=== PATIENT | male | born 1995 | race Caucasian/White ===

== ENCOUNTER 2018-09-11 09:02 | Emergency (ER) | payer OTHER ==
[2018-09-11 09:18] VITALS: BP 113/61
--- NOTE | 2018-09-11 09:59 | UC ---
UC General HPI - HPI Summary HPI Summary: Pleasant 23 yo gentleman c/o last couple days progressively worse R lower tooth pain and swelling. Worse at night. Subj fever yesterday, but resolved with ibuprofen. No fever today. No rash. No abd pain. No sob / cp / palpitations. Some ear discomfort. Has had pain in R lower tooth x 2 in the past, not this bad. Is looking for dentist, prior dentist retired. - History of Current Complaint Chief Complaint: UCDentalProblem Stated Complaint: DENTAL Time Seen by Provider: 09/11/18 09:51 Hx Obtained From: Patient Pain Intensity: 9 - Allergy/Home Medications Allergies/Adverse Reactions: Allergies Allergy/AdvReac Type Severity Reaction Status Date / Time No Known Allergies Allergy Verified 09/11/18 09:18 PMH/Surg Hx/FS Hx/Imm Hx Previously Healthy: Yes - Surgical History Surgical History: None - Social History Alcohol Use: Weekly Substance Use Type: None Smoking Status (MU): Never Smoked Tobacco Amount Used/How Often: every day Review of Systems All Other Systems Reviewed And Are Negative: Yes Constitutional: Positive: Other - see hpi Skin: Positive: Negative Eyes: Positive: Negative ENT: Positive: Other - see hpi Respiratory: Positive: Negative Cardiovascular: Positive: Negative Gastrointestinal: Positive: Negative Genitourinary: Positive: Negative Motor: Positive: Negative Neurovascular: Positive: Negative Musculoskeletal: Positive: Negative Neurological: Positive: Negative Psychological: Positive: Negative Is Patient Immunocompromised?: No Physical Exam Triage Information Reviewed: Yes Appearance: Well-Appearing, Well-Nourished Vital Signs: Initial Vital Signs Temp 98.2 F 09/11/18 09:11 Pulse 73 09/11/18 09:11 Resp 18 09/11/18 09:11 BP 113/61 09/11/18 09:11 Pulse Ox 100 09/11/18 09:11 Vital Signs Reviewed: Yes Eye Exam: Normal - grossly normal ENT Exam: Other - mmm, tm's bilat pedraza dull no stridor, tongue not elevated. Mild trismus d/t R jaw Dental Exam: Other - R lower wisdom tooth + swelling, + tender. + gingivitis noted Neck exam: Normal Neck: Positive: Supple, Nontender, No Lymphadenopathy Respiratory Exam: Normal Respiratory: Positive: Chest non-tender, Lungs clear, Normal breath sounds, No respiratory distress, No accessory muscle use Cardiovascular Exam: Normal Cardiovascular: Positive: RRR, No Murmur, Pulses Normal, Brisk Capillary Refill Abdominal Exam: Normal Abdomen Description: Positive: Nontender Musculoskeletal Exam: Normal - gait steady Neurological Exam: Normal - grossly nonfocal Psychological Exam: Normal - conversing easily and appropriately. nad. Course/Dx - Course Course Of Treatment: R lower wisdom tooth infection Mild trismus. Reviewed coa / tx plan. Declines work note. Questions as posed answered to the best of my ability. Encourage f/u dentist next week if possible. - Diagnoses Provider Diagnosis: Dental abscess, Gingivitis Discharge - Sign-Out/Discharge Documenting (check all that apply): Patient Departure All imaging exams completed and their final reports reviewed: No Studies - Discharge Plan Condition: Stable Disposition: HOME Prescriptions: Amoxicillin/Clavulanate TAB* [Augmentin TAB 875*] 875 mg PO BID #20 tab Chlorhexidine MW 0.12% 473ML* [Peridex Mouth Wash 0.12%*] 473 ml .SEE ORDER SEE INSTRUCTIONS #1 btl Ibuprofen TAB* [Motrin TAB* 600 MG] 600 mg PO Q6H PRN #30 tab PRN Reason: Pain Patient Education Materials: Dental Abscess (ED), Gingivitis (ED) Referrals: No Primary Care Phys,NOPCP [Primary Care Provider] - [facility] [place] [facility] [Outside] Additional Instructions: Follow up with a primary care physician as soon as you are able, for routine medical care. Follow up with your Dentist - next week if possible. Go to the Emergency Department for any worse or new problems. Drink lots of water. - Billing Disposition and Condition Condition: STABLE Disposition: Home
== END 2018-09-11 10:10 | disposition home or self-care (01) ==
LOC: UCCORT 09:02
DX: K04.7 Periapical abscess without sinus (principal); K05.10 Chronic gingivitis, plaque induced
CPT/HCPCS: 99202; G0463

== ENCOUNTER 2019-01-09 11:01 | Emergency (ER) | payer OTHER ==
[2019-01-09 11:42] VITALS: BP 124/70
[2019-01-09] MEDS ORDERED: Triamcinolone Acetonide* 40 MG/ML 1 ML VIAL IM ONE (11:58)
--- NOTE | 2019-01-09 12:08 | UC ---
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 Negative: Nausea, Vomiting, Numbness, Thirst, Diaphoresis, Weakness, Pallor, Shivering, Difficulty Breathing , Fever, Chills, Cough, Wheezing, Hoarseness, Throat Tightening, Abdominal Pain , Lightheadedness, Syncope, Drainage, Bruising, Tenderness, Red Streaks, Joint Swelling - Allergy/Home Medications Allergies/Adverse Reactions: Allergies Allergy/AdvReac Type Severity Reaction Status Date / Time No Known Allergies Allergy Verified 01/09/19 11:43 PMH/Surg Hx/FS Hx/Imm Hx Previously Healthy: Yes - Surgical History Surgical History: None - Family History Known Family History: Positive: Hypertension - Social History Alcohol Use: Rare Substance Use Type: None Smoking Status (MU): Never Smoked Tobacco Amount Used/How Often: every day Review of Systems All Other Systems Reviewed And Are Negative: Yes Constitutional: Positive: Negative Skin: Positive: Rash Eyes: Positive: Negative ENT: Positive: Negative Respiratory: Positive: Negative Cardiovascular: Positive: Negative Gastrointestinal: Positive: Negative Genitourinary: Positive: Negative Motor: Positive: Negative Neurovascular: Positive: Negative Musculoskeletal: Positive: Negative Neurological: Positive: Negative Psychological: Positive: Negative Physical Exam Triage Information Reviewed: Yes Appearance: Well-Appearing, No Pain Distress, Well-Nourished Vital Signs: Initial Vital Signs Temp 98.0 F 01/09/19 11:37 Pulse 64 01/09/19 11:37 Resp 16 01/09/19 11:37 BP 124/70 01/09/19 11:37 Pulse Ox 100 01/09/19 11:37 Vital Signs Reviewed: Yes Eyes: Positive: Conjunctiva Clear ENT: Positive: Hearing grossly normal. Negative: Nasal congestion, Nasal drainage, Trismus, Hoarse voice Neck: Positive: Supple, Nontender, No Lymphadenopathy Respiratory: Positive: Lungs clear, Normal breath sounds, No respiratory distress, No accessory muscle use Cardiovascular: Positive: RRR, No Murmur Musculoskeletal: Positive: ROM Intact, No Edema Neurological: Positive: Alert Psychological Exam: Normal Skin Exam: Other - rash C/W contact derm Images Head: 1 - red/swollen Front/Back of Body, Lg (Graham): 1 - rash consistent with contact derm 2 - see #1 3 - see #1 Course/Dx - Diagnoses Provider Diagnosis: Contact dermatitis due to nickel, Poison jose dermatitis Discharge ED - Sign-Out/Discharge Documenting (check all that apply): Patient Departure All imaging exams completed and their final reports reviewed: No Studies - Discharge Plan Condition: Stable Disposition: HOME Prescriptions: Triamcinolone 0.5% CREAM(NF) [Triamcinolone 0.5% CREAM*] 1 applic TOPICAL QID # 60 tube Patient Education Materials: Contact Dermatitis (ED) Referrals: [facility] [place] [facility] [Outside] - If Needed Additional Instructions: recheck in 2-3 weeks if not better rash on abd due to nickel allergy rash on arms probably due to poison jose or other plant - Billing Disposition and Condition Condition: STABLE Disposition: Home
== END 2019-01-09 12:16 | disposition home or self-care (01) ==
LOC: UCCORT 11:01
DX: L25.8 Unspecified contact dermatitis due to other agents (principal); L23.7 Allergic contact dermatitis due to plants, except food
CPT/HCPCS: 96372; 99212; G0463; J3301

== ENCOUNTER 2019-05-15 08:23 | Emergency (ER) | payer OTHER ==
[2019-05-15 08:45] VITALS: BP 127/60
--- NOTE | 2019-05-15 09:05 | UC ---
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 He also has it on the antecubital area of his left arm. He also complains of left elbow pain as a result of falling 2 weeks ago onto his elbow. He states that he slipped on ice. - History of Current Complaint Chief Complaint: UCUpperExtremity Time Seen by Provider: 05/15/19 08:38 Stated Complaint: SKIN STOMACH EYES/LEFT FINGERS ELBOW PAIN Hx Obtained From: Patient Onset/Duration: Sudden Onset Skin Exposure Onset/Duration: Weeks Ago Timing: Constant Onset Severity: Mild Current Severity: Moderate Pain Intensity: 1 Location: Other - The rash is located at the left antecubital area as well as his mid abdomen where his belt buckle hits. Character: Pruritus, Redness Aggravating Factor(s): Touch Alleviating Factor(s): Nothing - Patient states in the past he has received a steroid injection for the rash. Associated Signs & Symptoms: Positive: Rash Related History: Other: - The rash on his abdomen is due to his nickel belt buckle. - Allergy/Home Medications Allergies/Adverse Reactions: Allergies Allergy/AdvReac Type Severity Reaction Status Date / Time No Known Allergies Allergy Verified 05/15/19 08:40 PMH/Surg Hx/FS Hx/Imm Hx Previously Healthy: Yes - Surgical History Surgical History: None - Family History Known Family History: Positive: Hypertension - Social History Occupation: Employed Full-time Alcohol Use: None Substance Use Type: None Smoking Status (MU): Never Smoked Tobacco Amount Used/How Often: every day Review of Systems All Other Systems Reviewed And Are Negative: Yes Skin: Positive: Rash - Rash on mid abdomen where his belt buckle hits and the left antecubital area. Motor: Positive: Negative Neurovascular: Positive: Negative Musculoskeletal: Positive: Other: - Patient fell 2 weeks ago onto his left elbow and states he has mild pain there was some tingling in his hand. Neurological: Positive: Paresthesia - Left hand and fingers, although that has improved over the past 2 weeks. Is Patient Immunocompromised?: No Physical Exam Triage Information Reviewed: Yes Appearance: Well-Appearing, No Pain Distress, Well-Nourished Vital Signs: Initial Vital Signs Temp 97.7 F 05/15/19 08:38 Pulse 68 05/15/19 08:38 Resp 16 05/15/19 08:38 BP 127/60 05/15/19 08:38 Pulse Ox 100 05/15/19 08:38 Vital Signs Reviewed: Yes Musculoskeletal: Positive: Strength Intact, ROM Intact, Other: - Good peripheral pulses, neuro sensation and capillary refill, good arm strength against resistance. Neurological: Positive: Alert, Muscle Tone Normal Psychological Exam: Normal Skin: Positive: Rashes - Patient has a contact dermatitis to his left antecubital area as well as his mid abdomen where his belt buckle hits. Course/Dx - Course Course Of Treatment: Patient is comfortable here. I did explain to him I would rather use a tapering dose of oral prednisone as opposed to an injection. I don't feel there is a secondary skin infection at this point in time. - Diagnoses Provider Diagnosis: Contact dermatitis Discharge ED - Sign-Out/Discharge Documenting (check all that apply): Patient Departure All imaging exams completed and their final reports reviewed: No Studies - Discharge Plan Condition: Fair Disposition: HOME Prescriptions: predniSONE 10 mg TAB [Deltasone 10 MG TAB*] 10 mg PO DAILY 12 Days #30 tab Patient Education Materials: Contact Dermatitis (ED), Tendinitis (ED) Referrals: [facility] [Outside] No Primary Care Phys,NOPCP [Primary Care Provider] - Lc Cleaning MD [Medical Doctor] - Additional Instructions: Avoid scratching the rash, do not wear your belt buckle unless you can cover your abdomen with clothing. [facility] with [facility] if no improvement in 5-7 days. He may apply heat to your elbow and take ibuprofen every 8 hours for pain. Follow-up with the orthopedist if no improvement in the elbow pain. - Billing Disposition and Condition Condition: FAIR Disposition: Home
== END 2019-05-15 09:49 | disposition home or self-care (01) ==
LOC: UCCORT 08:23
DX: L25.9 Unspecified contact dermatitis, unspecified cause (principal); R20.2 Paresthesia of skin
CPT/HCPCS: 99212; G0463